=== PATIENT | female | born 1955 | race Caucasian/White ===

== ENCOUNTER 2016-07-02 16:56 | Emergency (ER) | payer OTHER ==
[~2016-07-02] VITALS: Ht 162.6 cm; Wt 40.2 kg
[~2016-07-02 16:56] MED LIST: BETAPACE80 MG PO; COUMADIN,JANTOVE4 MG PO; COUMADIN3 M1 PO
[2016-07-02 17:37] LABS: MCH 32.6 PG (29.0-34.0); MCHC 33.1 G/DL (30.0-36.0); MCV 98.4 FL (83-99); PLATELET COUNT 279 K/uL (156-360); RBC DIS.WIDTH-CV 13.6 % (11.8-14.6); RBC DIS.WIDTH-SD 49.2 % (39-53); RED BLOOD COUNT 4.27 M/uL (3.80-5.20)
[2016-07-02] MEDS ORDERED: WARFARIN SODIUM4 MG PO ×2 (17:43→17:44)
[2016-07-02] MEDS ORDERED: WARFARIN SODIUM2 MG PO (17:43)
[2016-07-02] MEDS ORDERED: BETAPACE80 MG PO (17:45)
[2016-07-02 17:50] LABS: CHLORIDE 103 mEq/L (99-109); POTASSIUM 5.3 mEq/L (3.7-5.4); SODIUM 138 mEq/L (136-147)
[2016-07-02 17:52] LABS: GLUCOSE 92 mg/dL (70-99)
[2016-07-02 17:53] LABS: ANION GAP 9 MEQ/L (2-14)
[2016-07-02 17:55] LABS: D-DIMER ELISA 0.49 mg/L FEU (< 0.57)
[2016-07-02 17:56] LABS: GFR ESTIMATE (CALCULATED) > 59 mL/min/
[2016-07-02 17:57] LABS: UREA NITROGEN (BUN) 17 mg/dL (9-23)
[2016-07-02 18:00] LABS: TROP-I INTERPRETATION NEGATIVE; TROPONIN-I 0.01 ng/mL (0.0-0.30)
[2016-07-02 19:00] LABS: INTER. NORMALIZED RATIO 3.4; PROTHROMBIN TIME 35.5 (9.2-11.2); PTT 50.3 (25-32)
[2016-07-02 22:30] VITALS: BP 122/55
[2016-07-03 01:40] LABS: TROP-I INTERPRETATION NEGATIVE; TROPONIN-I 0.02 ng/mL (0.0-0.30)
== END 2016-07-03 02:16 | disposition home or self-care (01) ==
LOC: EME 16:56
PROVIDERS: Emergency Medicine
DX: R07.9 Chest pain, unspecified (principal); M54.89 Other dorsalgia; R06.02 Shortness of breath; R05 Cough; I48.91 Unspecified atrial fibrillation; Z95.4 Presence of other heart-valve replacement; Z79.01 Long term (current) use of anticoagulants; Z87.891 Personal history of nicotine dependence
CPT/HCPCS: 71020; 71275; 80048; 84484; 85027; 85379; 85610; 85730; 93005; J1200; J2930; J7030

== ENCOUNTER 2016-07-25 08:07 | Emergency (ER) | payer OTHER ==
[~2016-07-25] VITALS: Ht 162.6 cm; Wt 41.0 kg
[~2016-07-25 08:07] MED LIST changes: +WARFARIN SODIUM2 MG PO; +WARFARIN SODIUM4 MG PO
[2016-07-25] MEDS ORDERED: XANAX1 MG PO (08:47)
[2016-07-25 09:09] LABS: HEMATOCRIT 39.5 % (36.0-46.0); MCH 31.9 PG (29.0-34.0); MCHC 32.7 G/DL (30.0-36.0); MCV 97.8 FL (83-99); MEAN PLAT.VOLUME 10.5 uM^3 (9.5-12.4); PLATELET COUNT 208 K/uL (156-360); RBC DIS.WIDTH-CV 13.3 % (11.8-14.6); RBC DIS.WIDTH-SD 48.2 % (39-53); RED BLOOD COUNT 4.04 M/uL (3.80-5.20); WHITE BLOOD COUNT 6.8 K/uL (4.1-10.2)
[2016-07-25 09:18] LABS: CHLORIDE 102 mEq/L (99-109); POTASSIUM 5.1 mEq/L (3.7-5.4); SODIUM 137 mEq/L (136-147)
[2016-07-25 09:20] LABS: GLUCOSE 87 mg/dL (70-99)
[2016-07-25 09:21] LABS: ANION GAP 11 MEQ/L (2-14)
[2016-07-25 09:24] LABS: GFR ESTIMATE (CALCULATED) > 59 mL/min/; UREA NITROGEN (BUN) 24 mg/dL (9-23)
[2016-07-25 09:31] LABS: TROP-I INTERPRETATION NEGATIVE; TROPONIN-I 0.02 ng/mL (0.0-0.30)
[2016-07-25 10:27] VITALS: BP 128/58
== END 2016-07-25 10:28 | disposition home or self-care (01) ==
LOC: EME 08:07
PROVIDERS: Emergency Medicine
DX: I10 Essential (primary) hypertension (principal); E86.0 Dehydration; M81.0 Age-related osteoporosis without current pathological fracture; Z95.2 Presence of prosthetic heart valve; Z87.891 Personal history of nicotine dependence
CPT/HCPCS: 71020; 80048; 84443; 84484; 85027; 93005; 99281; 99284

== ENCOUNTER 2016-08-03 10:10 | Inpatient (IN) | payer OTHER ==
[~2016-08-03] VITALS: Ht 163.8 cm; Wt 45.1 kg
[2016-08-03] VITALS (19 sets, daily range): BP systolic 88–182; BP diastolic 43–147
[~2016-08-03 10:10] MED LIST changes: +XANAX1 MG PO
[2016-08-03 11:20] LABS: CHLORIDE 108 mEq/L (99-109); POTASSIUM 4.5 mEq/L (3.7-5.4); SODIUM 137 mEq/L (136-147)
[2016-08-03 11:22] LABS: EOSINOPHIL (%) 0.1 % (0-5); GLUCOSE 119 mg/dL (70-99); HEMATOCRIT 20.2 % (36.0-46.0); IMMATURE GRANULOCYTE (%) 0.9 % (0.0-0.7); IMMATURE GRANULOCYTE COUNT 0.1 K/uL; INSTRUMENT ABS NEUTROPHIL CT 7.9 K/uL; MCH 32.2 PG (29.0-34.0); MCHC 32.7 G/DL (30.0-36.0); MCV 98.5 FL (83-99); MEAN PLAT.VOLUME 9.9 uM^3 (9.5-12.4); MONOCYTE (%) 5.7 % (3-12); MONOCYTE COUNT 0.5 K/uL (0-0.8); NEUTROPHIL COUNT 7.9 K/uL (1.8-6.4); PLATELET COUNT 226 K/uL (156-360); RBC DIS.WIDTH-SD 49.3 % (39-53); RED BLOOD COUNT 2.05 M/uL (3.80-5.20); WHITE BLOOD COUNT 9.5 K/uL (4.1-10.2)
[2016-08-03 11:23] LABS: ANION GAP 8 MEQ/L (2-14)
[2016-08-03 11:26] LABS: GFR ESTIMATE (CALCULATED) > 59 mL/min/; UREA NITROGEN (BUN) 58 mg/dL (9-23)
[2016-08-03 11:37] LABS: PROTHROMBIN TIME 64.1 (9.2-11.2)
[2016-08-03] MEDS ORDERED: XANAX0.5 MG PO (12:20)
[2016-08-03] MEDS ORDERED: WARFARIN SODIUM2 MG PO (12:21)
[2016-08-03] MEDS ORDERED: LOW DOSE ASPIRI81 M1 PO (12:22)
[2016-08-03] MEDS ORDERED: NORVASC2.5 MG PO (12:22)
[2016-08-03] MEDS ORDERED: SALINE NASAL SP45 ML BOTH NARES (12:22)
[2016-08-03 18:43] LABS: METH RESISTANT S AUREUS PCR NEGATIVE (NEGATIVE)
[2016-08-03 18:58] LABS: PROBE CHECK PASS; SPECIMEN PROCESSING CONTROL PASS
[2016-08-04] VITALS (7 sets, daily range): BP systolic 100–134; BP diastolic 44–68
[2016-08-04 00:56] LABS: HEMATOCRIT 27.9 % (36.0-46.0)
[2016-08-04 01:01] LABS: MCV 89.1 FL (83-99)
[2016-08-04 06:05] LABS: HEMATOCRIT 28.2 % (36.0-46.0); MCV 89.8 FL (83-99)
[2016-08-04 06:29] LABS: PTT 25.7 (25-32)
[2016-08-04 06:37] LABS: INTER. NORMALIZED RATIO 1.1; PROTHROMBIN TIME 11.3 (9.2-11.2)
[2016-08-04 10:36] LABS: HEMATOCRIT 28.2 % (36.0-46.0); MCV 89.8 FL (83-99)
[2016-08-05] VITALS (9 sets, daily range): BP systolic 104–168; BP diastolic 43–85
[2016-08-05 06:46] LABS: HEMATOCRIT 28.7 % (36.0-46.0); MCH 30.8 PG (29.0-34.0); MCHC 33.1 G/DL (30.0-36.0); MCV 93.2 FL (83-99); RBC DIS.WIDTH-CV 17.6 % (11.8-14.6); RBC DIS.WIDTH-SD 57.7 % (39-53)
[2016-08-05 06:50] LABS: RED BLOOD COUNT 3.08 M/uL (3.80-5.20)
[2016-08-05 07:20] LABS: HEMATOLOGY COMMENT 1 SN; MEAN PLAT.VOLUME 10.1 uM^3 (9.5-12.4); PLAT.SUFFICIENCY DECREASED
[2016-08-05 07:27] LABS: PLATELET COUNT 127 K/uL (156-360)
[2016-08-06] VITALS (11 sets, daily range): BP systolic 99–193; BP diastolic 47–90
[2016-08-06 07:05] LABS: ANION GAP 9 MEQ/L (2-14); CHLORIDE 112 MEQ/L (99-109); GFR ESTIMATE (CALCULATED) > 59 mL/min/; GLUCOSE 90 mg/dL (70-99); SAMPLE HEMOLYSIS CHECK 0; SAMPLE ICTERIC CHECK 0; SAMPLE LIPEMIA CHECK 0
[2016-08-06 07:09] LABS: POTASSIUM 3.5 MEQ/L (3.7-5.4); SODIUM 145 MEQ/L (136-147); UREA NITROGEN (BUN) 6 mg/dL (9-23)
[2016-08-06 07:24] LABS: EOSINOPHIL COUNT 0.1 K/uL (0-0.3); HEMATOCRIT 33.1 % (36.0-46.0); IMMATURE GRANULOCYTE (%) 0.8 % (0.0-0.7); IMMATURE GRANULOCYTE COUNT 0.1 K/uL; INSTRUMENT ABS NEUTROPHIL CT 5.1 K/uL; LYMPHOCYTE COUNT 0.6 K/uL (1.0-2.8); MCH 30.7 PG (29.0-34.0); MCHC 32.9 G/DL (30.0-36.0); MCV 93.2 FL (83-99); MEAN PLAT.VOLUME 9.5 uM^3 (9.5-12.4); MONOCYTE (%) 8.6 % (3-12); MONOCYTE COUNT 0.6 K/uL (0-0.8); NEUTROPHIL (%) 78.9 % (45-76); NEUTROPHIL COUNT 5.1 K/uL (1.8-6.4); RBC DIS.WIDTH-CV 16.8 % (11.8-14.6); RBC DIS.WIDTH-SD 54.2 % (39-53); RED BLOOD COUNT 3.55 M/uL (3.80-5.20); WHITE BLOOD COUNT 6.5 K/uL (4.1-10.2)
[2016-08-06 07:30] LABS: PLATELET COUNT 177 K/uL (156-360)
[2016-08-06 11:29] LABS: INTER. NORMALIZED RATIO 1.1; PROTHROMBIN TIME 11.4 (9.2-11.2)
[2016-08-06 11:36] LABS: PTT 27.8 (25-32)
[2016-08-06 16:48] LABS: POINT-OF-CARE METER ID UU14174216
[2016-08-07] VITALS (7 sets, daily range): BP systolic 111–171; BP diastolic 52–81
[2016-08-07 07:43] LABS: EOSINOPHIL (%) 2.9 % (0-5); EOSINOPHIL COUNT 0.2 K/uL (0-0.3); HEMATOCRIT 29.2 % (36.0-46.0); IMMATURE GRANULOCYTE (%) 1.1 % (0.0-0.7); IMMATURE GRANULOCYTE COUNT 0.1 K/uL; INSTRUMENT ABS NEUTROPHIL CT 3.5 K/uL; MCH 31.2 PG (29.0-34.0); MCHC 32.9 G/DL (30.0-36.0); MCV 94.8 FL (83-99); MEAN PLAT.VOLUME 9.9 uM^3 (9.5-12.4); MONOCYTE (%) 10.1 % (3-12); MONOCYTE COUNT 0.5 K/uL (0-0.8); NEUTROPHIL (%) 66.7 % (45-76); NEUTROPHIL COUNT 3.5 K/uL (1.8-6.4); PLATELET COUNT 162 K/uL (156-360); RBC DIS.WIDTH-CV 17.2 % (11.8-14.6); RBC DIS.WIDTH-SD 57.3 % (39-53); RED BLOOD COUNT 3.08 M/uL (3.80-5.20); WHITE BLOOD COUNT 5.3 K/uL (4.1-10.2)
[2016-08-07 07:55] LABS: INTER. NORMALIZED RATIO 1.2; PROTHROMBIN TIME 11.9 (9.2-11.2)
[2016-08-07 09:30] LABS: ALKALINE PHOSPHATASE 67 IU/L (3-129); ANION GAP 7 MEQ/L (2-14); CHLORIDE 107 MEQ/L (99-109); GFR ESTIMATE (CALCULATED) > 59 mL/min/; GLUCOSE 91 mg/dL (70-99); SAMPLE HEMOLYSIS CHECK 0; SAMPLE ICTERIC CHECK 0; SAMPLE LIPEMIA CHECK 0; SODIUM 141 MEQ/L (136-147); TOTAL BILIRUBIN 0.8 MG/DL (0.0-1.0); UREA NITROGEN (BUN) 11 mg/dL (9-23)
[2016-08-07 15:19] LABS: INTER. NORMALIZED RATIO 1.3; PROTHROMBIN TIME 13.8 (9.2-11.2); PTT 41.7 (25-32)
[2016-08-07 23:24] LABS: INTER. NORMALIZED RATIO 1.6; PROTHROMBIN TIME 16.7 (9.2-11.2)
[2016-08-07 23:32] LABS: PTT 75.1 (25-32)
[2016-08-08 05:39] VITALS: BP 117/56
[2016-08-08 06:41] LABS: MCH 31.2 PG (29.0-34.0); MCHC 32.9 G/DL (30.0-36.0); MCV 94.9 FL (83-99); MEAN PLAT.VOLUME 10.2 uM^3 (9.5-12.4); PLATELET COUNT 169 K/uL (156-360); RBC DIS.WIDTH-CV 16.7 % (11.8-14.6); RBC DIS.WIDTH-SD 55.8 % (39-53); RED BLOOD COUNT 2.95 M/uL (3.80-5.20); WHITE BLOOD COUNT 5.6 K/uL (4.1-10.2)
[2016-08-08 07:07] LABS: INTER. NORMALIZED RATIO 1.8; PTT 64.3 (25-32)
[2016-08-08 07:27] VITALS: BP 126/82
[2016-08-08 11:47] VITALS: BP 133/69
[2016-08-08 15:25] LABS: INTER. NORMALIZED RATIO 1.7; PTT 47.1 (25-32)
[2016-08-08 17:00] VITALS: BP 145/66
[2016-08-08 19:24] VITALS: BP 138/61
[2016-08-08 22:44] LABS: INTER. NORMALIZED RATIO 1.7; PROTHROMBIN TIME 17.7 (9.2-11.2)
[2016-08-08 22:52] LABS: PTT 77.6 (25-32)
[2016-08-08 23:37] VITALS: BP 102/54
[2016-08-09 02:59] VITALS: BP 108/58
[2016-08-09 06:16] LABS: HEMATOCRIT 29.7 % (36.0-46.0); MCHC 32.3 G/DL (30.0-36.0); MCV 95.8 FL (83-99); MEAN PLAT.VOLUME 10.5 uM^3 (9.5-12.4); PLATELET COUNT 185 K/uL (156-360); RBC DIS.WIDTH-CV 16.9 % (11.8-14.6); RBC DIS.WIDTH-SD 56.7 % (39-53)
[2016-08-09 06:36] LABS: INTER. NORMALIZED RATIO 1.7; PROTHROMBIN TIME 17.4 (9.2-11.2)
[2016-08-09 07:39] LABS: PTT 62.5 (25-32)
[2016-08-09 08:00] VITALS: BP 161/69
[2016-08-09 12:00] VITALS: BP 128/62
[2016-08-09 19:47] VITALS: BP 117/70
[2016-08-09 19:52] VITALS: BP 117/70
[2016-08-09 23:55] VITALS: BP 115/54
[2016-08-10 03:20] VITALS: BP 106/42
[2016-08-10 07:05] LABS: HEMATOCRIT 35.4 % (36.0-46.0); MCH 30.9 PG (29.0-34.0); MCHC 31.6 G/DL (30.0-36.0); MCV 97.8 FL (83-99); MEAN PLAT.VOLUME 11.7 uM^3 (9.5-12.4); PLATELET COUNT 215 K/uL (156-360); RBC DIS.WIDTH-CV 17.2 % (11.8-14.6); RBC DIS.WIDTH-SD 60.8 % (39-53); RED BLOOD COUNT 3.62 M/uL (3.80-5.20); WHITE BLOOD COUNT 7.2 K/uL (4.1-10.2)
[2016-08-10 07:16] LABS: INTER. NORMALIZED RATIO 2.2; PROTHROMBIN TIME 22.7 (9.2-11.2); PTT 56.3 (25-32)
[2016-08-10 07:30] VITALS: BP 144/63
[2016-08-10] MEDS ORDERED: DEXILANT60 MG PO (09:17)
[2016-08-10] MEDS ORDERED: ALPRAZOLAM0.25 M2 PO (09:17)
== END 2016-08-10 12:55 | disposition home or self-care (01) | DRG 378 ==
LOC: EME → EDBD 10:10 → 4WEST 12:25 → EDOF 12:25 → 4WEST 16:54 → 4EAST 08-06 05:54
PROVIDERS: Emergency Medicine; Internal Medicine; Specialist
PROC: 30233L1 Transfusion of Nonautologous Fresh Plasma into Peripheral Vein, Percutaneous Approach (ICD-10-PCS; 2016-08-03)
PROC: 30233N1 Transfusion of Nonautologous Red Blood Cells into Peripheral Vein, Percutaneous Approach (ICD-10-PCS; 2016-08-03)
PROC: 0DB68ZX Excision of Stomach, Via Natural or Artificial Opening Endoscopic, Diagnostic (ICD-10-PCS; principal; 2016-08-04)
PROC: 0DBH8ZX Excision of Cecum, Via Natural or Artificial Opening Endoscopic, Diagnostic (ICD-10-PCS; 2016-08-06)
DX: K25.4 Chronic or unspecified gastric ulcer with hemorrhage (principal); I95.9 Hypotension, unspecified; K92.1 Melena; I48.2 Chronic atrial fibrillation; D62 Acute posthemorrhagic anemia; D68.32 Hemorrhagic disorder due to extrinsic circulating anticoagulants; T45.515A Adverse effect of anticoagulants, initial encounter; F17.200 Nicotine dependence, unspecified, uncomplicated; I25.10 Atherosclerotic heart disease of native coronary artery without angina pectoris; D12.0 Benign neoplasm of cecum; J44.9 Chronic obstructive pulmonary disease, unspecified; E78.5 Hyperlipidemia, unspecified; E44.0 Moderate protein-calorie malnutrition; Z95.3 Presence of xenogenic heart valve; M19.90 Unspecified osteoarthritis, unspecified site; Z68.1 Body mass index [BMI] 19.9 or less, adult; I10 Essential (primary) hypertension
CPT/HCPCS: 80048; 80053; 82948; 85014; 85018; 85025; 85027; 85610; 85730; 86850; 86900; 86901; 86920; 87641; 88305; 88342 TC; 93005; 99281; 99285; C9113; J1940; J2405; J3430; J7030; J7042; J7050; P9016; P9017